=== PATIENT | male | born 1985 | race Caucasian/White ===

== ENCOUNTER 2025-03-01 16:49 | Emergency (ER) | payer MEDICAID ==
[~2025-03-01] VITALS: Ht 180.3 cm; Wt 87.3 kg
[2025-03-01 16:51] VITALS: BP_DIAS 124; RESP 14; TEMP 98.2; O2SAT 96
--- NOTE | 2025-03-01 17:06 | ELECTROCARDIOGRAPH REPORT ---
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 Max Casanova Measurements Intervals [place] Rate: 124 P: 44 [place]: 145 QRS: 75 QRSD: 89 T: 36 QT: 304 QTc: 437 Interpretive Statements Sinus tachycardia Multiple ventricular premature complexes Probable left atrial enlargement RSR' in V1 or V2, right VCD or RVH Electronically Signed On 03-02-2025 17:20:[address] Max Casanova Please click the below link to view image of tracing.
--- NOTE | 2025-03-01 17:43 | RADIOLOGY REPORT ---
CHEST RADIOGRAPH Indication: CP Technique: Single frontal view of the chest was obtained Comparison: None FINDINGS: Lines and Tubes: None Lungs: No focal consolidation. Pleura: No effusion. No pneumothorax. Cardiomediastinal contours: Unremarkable Bones: No acute osseous abnormality. IMPRESSION: 1. No acute cardiopulmonary disease.
--- NOTE | 2025-03-01 17:54 | Physician Documentation ---
History of Present Illness ~ Chief Complaint: Medical Clearance Stated Complaint: MEDICAL CLEARANCE Time Seen by MD: 17:15 HPI Patient is seen today with complaints of history of high blood pressure and heart disease. Patient states he is currently having chest pain but denies any shortness of breath or abdominal pain or nausea, vomiting, diarrhea. Patient has no other concern or complaint at this time. Medication Reconciliation Allergies: Coded Allergies: No Known Allergies (Unverified , 03/01/25) Review of Systems Constitutional: Denies: chills, fever, weakness Eyes: Denies: pain, blurred vision ENT: Denies: ear pain, nose pain, throat pain, mouth pain Respiratory: Denies: cough, shortness of breath Cardiovascular: Denies: chest pain, palpitations Gastrointestinal: Denies: abdominal pain, nausea, vomiting Genitourinary: Denies: burning, dysuria Male Genitalia: Denies: penile discharge, testicular pain Neurological: Denies: headache, dizziness Musculoskeletal: Denies: pain, swelling Integumentary: Denies: rash, lesions Allergic/Immunologic: Denies: hives, itching Hematologic/Lymphatic: Denies: no symptoms reported Psychiatric: Denies: depression, anxiety Physical Exam Vital Signs: Temperature: 98.2, Source: Oral, Heart Rate: 126, Respiratory Rate: 14, BP: 160/124, Pulse Oximetry: 96, Weight: 87.270 Physical Exam General: Awake and Alert, no acute distress. HEENT: Conjunctiva pink, Sclera clear, Mucus Membranes moist. Neck: Supple without masses and tenderness. Resp: Unlabored. Lungs clear to auscultation bilaterally. Heart: Tachycardic Rate and regular rhythm, normal S1 and S2 without murmur, rub or gallop. Abdomen: Soft and non tender no organomegaly Extremities: No cyanosis,clubbing or edema. Skin: Warm and Dry. Progress Results/Orders Results/Orders Completed Orders - LUIS THOMAS Drug Screen, Urine (03/01/25 17:50) Lisinopril Tablet (Zestril Tablet) (03/01/25 19:05) Clonidine Tablet (Catapres Tablet) (03/01/25 19:05) Medications Received in ER Medications (Trade) Dose Ordered Sig/Timo Route PRN Reason Start Time Stop Time Status Last Admin Dose Admin (Zestril tablet) 10 mg ONCE STAT PO 03/01/25 19:05 03/01/25 19:07 DC 03/01/25 19:12 10 MG (Catapres tablet) 0.1 mg ONCE STAT PO 03/01/25 19:05 03/01/25 19:07 DC 03/01/25 19:12 0.1 MG Vital Signs 03/01/25 03/01/25 16:51 19:12 Temp 98.2 Pulse 126 116 Resp 14 B/P (MAP) 160/124 Pulse Ox 96 Laboratory Tests Test 03/01/25 17:25 03/01/25 18:14 Urine Opiates Screen Negative Urine Methadone Screen Negative Urine Fentanyl Screen Negative Urine Barbiturates Screen Negative Urine Phencyclidine Screen Negative Urine Amphetamines Screen Negative Urine Benzodiazepines Screen Negative Urine Cocaine Screen Negative Urine Cannabinoids Screen Negative Drug Screen Comment White Blood Count 12.9 H Red Blood Count 5.87 Hemoglobin 16.5 Hematocrit 48.6 Mean Corpuscular Volume 82.9 Mean Corpuscular Hemoglobin 28.1 Mean Corpuscular Hemoglobin Concent 33.9 Red Cell Distribution Width 13.1 Platelet Count 306 Mean Platelet Volume 8.0 Neutrophils (%) (Auto) 85.8 H Lymphocytes (%) (Auto) 10.2 L Monocytes (%) (Auto) 3.4 Eosinophils (%) (Auto) 0.2 Basophils (%) (Auto) 0.4 Neutrophils # (Auto) 11.0 H Lymphocytes # (Auto) 1.3 Monocytes # (Auto) 0.4 Eosinophils # (Auto) 0.0 Basophils # (Auto) 0.1 CBC Comment Sodium Level 140 Potassium Level 4.2 Chloride Level 103 Carbon Dioxide Level 27.4 Anion Gap 10 Blood Urea Nitrogen 12 Creatinine 1.04 Estimated GFR/1.73 m2 80 BUN/Creatinine Ratio 11.5 Glucose Level 128 H Calcium Level 9.3 Total Bilirubin 0.5 Aspartate Amino Transf (AST/SGOT) 38 H Alanine Aminotransferase (ALT/SGPT) 50 Alkaline Phosphatase 77 Troponin I High Sensitivity 10 Pro-B-Type Natriuretic Peptide < 30 Total Protein 7.9 Albumin 4.2 Globulin 3.7 Albumin/Globulin Ratio 1.1 Chemistry Comments EKG/XRAY/CT/US/VASC/MRI EKG : Additional Comment EKG interpreted by myself today shows normal sinus tachycardia at rate of 124 beats per minute. No sign of ST segment elevation or ischemia, no axis deviation. Medical Decision Making Findings Patient is seen today with complaints of history of high blood pressure and heart disease. Patient states he is currently having chest pain but denies any shortness of breath or abdominal pain or nausea, vomiting, diarrhea. Patient has no other concern or complaint at this time. Patient's labs all returned largely unremarkable. Cardiac enzymes negative. EKG unremarkable other than mild tachycardia. Patient given dose of lisinopril 10 mg and clonidine 0.1 mg in the ED today. Patient is cleared medically for incarceration. Patient will continue home meds as currently prescribed including lisinopril 10 mg q.d. by mouth. Patient will return to ED with any worsening, concerning or changing symptoms. Departure Disposition: HOME / SELF CARE / HOMELESS Impression: Primary Impression: HTN (hypertension) Qualified Codes: I10 - Essential (primary) hypertension Additional Impression: Chest pain Qualified Codes: R07.9 - Chest pain, unspecified Condition: Improved Discharge Instructions: Medical Screening Exam Additional Instructions: Patient's labs all returned largely unremarkable. Cardiac enzymes negative. EKG unremarkable other than mild tachycardia. Patient given dose of lisinopril 10 mg and clonidine 0.1 mg in the ED today. Patient is cleared medically for incarceration. Patient will continue home meds as currently prescribed including lisinopril 10 mg q.d. by mouth. Patient will return to ED with any worsening, concerning or changing symptoms. Patient is medically cleared to return to halfway regarding his high blood pressure and chest pain. Referrals: NO PRIMARY CARE PROVIDER (PCP) Signature Scribe Signature: No scribe Attestation: No scribe LUIS THOMAS PAC March 01, 2025 17:54
[2025-03-01 18:25] LABS: URINE AMPHETAMINE SCREEN NEGATIVE (Neg); URINE BARBITUATE SCREEN NEGATIVE (Neg); URINE BENZODIAZEPINES SCREEN NEGATIVE (Neg); URINE CANNABINOID SCREEN NEGATIVE (Neg); URINE COCAINE SCREEN NEGATIVE (Neg); URINE METHADONE SCREEN NEGATIVE (Neg); URINE OPIATE SCREEN NEGATIVE (Neg); URINE PHENCYCLIDINE SCREEN NEGATIVE (Neg)
[2025-03-01 18:29] LABS: BASOPHILS # (AUTO) 0.1 X10'3 (0-0.2); MEAN CORPUSCULAR HEMOGLOBIN 28.1 PG (27.0-31.0); MEAN CORPUSCULAR VOLUME 82.9 FL (78-98); WHITE BLOOD COUNT 12.9 X10'3 (4.5-11.0)
[2025-03-01 18:31] LABS: BASOPHILS % (AUTO) 0.4 % (0-1); EOSINOPHILS % (AUTO) 0.2 % (0-6); HEMATOCRIT 48.6 % (42.0-52.0); HEMOGLOBIN 16.5 g/dl (14.0-17.9); LYMPHOCYTES # (AUTO) 1.3 X10'3 (1.1-4.8); LYMPHOCYTES % (AUTO) 10.2 % (21-51); MEAN CORPUSCULAR HGB CONC 33.9 g/dL (33.0-36.5); MONOCYTES # (AUTO) 0.4 X10'3 (0-0.9); MONOCYTES % (AUTO) 3.4 % (2-12); NEUTROPHILS % (AUTO) 85.8 % (42-75); PLATELET COUNT 306 X10'3 (140-440); RED BLOOD COUNT 5.87 X10'6 (4.70-6.10); RED CELL DISTRIBUTION WIDTH 13.1 % (11.5-14.5)
[2025-03-01 18:42] LABS: ALANINE AMINOTRANSFERASE 50 U/L (12-78); ALBUMIN 4.2 G/DL (3.4-5.0); ALBUMIN/GLOBULIN RATIO 1.1 (1.1-1.5); ALKALINE PHOSPHATASE 77 IU/L (46-116); ANION GAP 10 (8-16); ASPARTATE AMINO TRANSFERASE 38 U/L (10-37); BILIRUBIN,TOTAL 0.5 MG/DL (0.1-1.0); BLOOD UREA NITROGEN 12 MG/DL (7-18); BUN/CREATININE RATIO 11.5 (10.0-20.0); CALCIUM 9.3 MG/DL (8.5-10.1); CHLORIDE 103 MMOL/L (99-107); CREATININE 1.04 MG/DL (0.60-1.10); GLUCOSE 128 MG/DL (70-104); POTASSIUM 4.2 MMOL/L (3.5-5.1); SODIUM 140 MMOL/L (135-145); TOTAL CARBON DIOXIDE 27.4 MMOL/L (24-32); TOTAL PROTEIN 7.9 G/DL (6.4-8.2); eCRCL 104 ML/MIN; eGFR 80 ML/MIN
[2025-03-01 18:50] LABS: PRO BRAIN NATRIURETIC PEPTIDE < 30 PG/ML (0-125)
[2025-03-01 19:12] VITALS: BP_SYST 172; PULSE 116
[2025-03-01] MEDS: lisinopril 10 MG tablet PO STA (19:12)
[2025-03-01] MEDS: cloNIDine 0.1 mg tablet PO STA (19:12)
== END 2025-03-01 19:22 | disposition home or self-care (01) ==
LOC: ER 16:50
DX: I10 Essential (primary) hypertension (principal); R07.89 Other chest pain
CPT/HCPCS: 36415; 71045; 80053; 80305; 83880; 84484; 85025; 93005; 99285